=== PATIENT | female | born 1960 | race Caucasian/White ===

== ENCOUNTER → 2021-01-03 15:05 | Outpatient (CLI) | payer BC, SELFPAY ==
--- NOTE | ~2021-01-03 | MM_ITS ---
EXAMINATION: MM screening sanju[facility] BI w yuli HISTORY: Screening mammogram, family history of breast cancer in her mother. TECHNIQUE: Craniocaudal and mediolateral oblique 3-D tomosynthesis images were obtained and synthetic 2-D images were generated. CAD analysis was submitted and interpreted. COMPARISON: 07/21/2017, 06/16/2016, 05/07/2015 BREAST PARENCHYMAL COMPOSITION: The breasts are heterogeneously dense, which may obscure small masses . FINDINGS: There is no evidence of suspicious mass, calcification, or architectural distortion to sugg est malignancy in either breast. There has been no suspicious interval change. IMPRESSION: 1. No mammographic evidence of malignancy. 2. Recommend routine screening mammography in one year. BI-RADS Category 1: Negative Reviewed, dictated and finalized at location A.
== END ==
PROVIDERS: Visit Provider Nurse Practitioner Obstetrics & Gynecology
DX: Z12.31 Encounter for screening mammogram for malignant neoplasm of breast (principal)
CPT/HCPCS: 77063; 77067

== ENCOUNTER → 2022-08-13 10:43 | Outpatient (CLI) | payer OTHER, SELFPAY ==
--- NOTE | ~2022-08-13 | MM_ITS ---
EXAMINATION: MM screening [facility] BI w yuli HISTORY: Screening mammogram, family history of breast cancer in her mother. TECHNIQUE: Craniocaudal and mediolateral oblique 3-D tomosynthesis images were obtained and synthetic 2-D images were generated. CAD analysis was submitted and interpreted. COMPARISON: 01/03/2021, 07/21/2017, 06/16/2016 BREAST PARENCHYMAL COMPOSITION: The breasts are heterogeneously dense, which may obscure small masses . FINDINGS: No suspicious mass, calcification, or architectural distortion are identified in either beata ast to suggest malignancy. There has been no suspicious interval change. IMPRESSION: 1. No mammographic evidence of malignancy. 2. Recommend routine screening mammography in one year. BI-RADS Category 1: Negative Reviewed, dictated and finalized at location A. GE APPRAISER
== END ==
PROVIDERS: PCP Family Medicine; Visit Provider Family Medicine
DX: Z12.31 Encounter for screening mammogram for malignant neoplasm of breast (principal)
CPT/HCPCS: 77063; 77067

== ENCOUNTER → 2023-09-10 14:15 | Outpatient (CLI) | payer MEDICARE, SELFPAY ==
--- NOTE | ~2023-09-10 | MM_ITS ---
EXAMINATION: MM screening [facility] BI w yuli HISTORY: Screening mammogram TECHNIQUE: Craniocaudal and mediolateral oblique 3-D tomosynthesis images were obtained and synthetic 2-D images were generated. Bilateral rotated lateral CC views. CAD analysis was submitted and interp reted. COMPARISON: 08/13/2022, 01/03/2021, 07/21/2017 bilateral screening mammogram examinations BREAST PARENCHYMAL COMPOSITION: The breasts are heterogeneously dense, which may obscure small masses . FINDINGS: 2 biopsy markers are noted on the left. History of prior benign left breast biopsies. There is no evidence of suspicious mass, calcification, or architectural distortion to suggest malignancy in either breast. There has been no suspicious interval change. IMPRESSION: 1. No mammographic evidence of malignancy. 2. Recommend routine screening mammography in one year. BI-RADS Category 1: Negative Reviewed, dictated and finalized at location A. EF MANAGER
== END ==
PROVIDERS: PCP Nurse Practitioner Obstetrics & Gynecology; Visit Provider Nurse Practitioner Obstetrics & Gynecology
DX: Z12.31 Encounter for screening mammogram for malignant neoplasm of breast (principal)
CPT/HCPCS: 77063; 77067

== ENCOUNTER 2023-12-16 11:13 | Outpatient (CLI) | payer MEDICARE, SELFPAY ==
--- NOTE | ~2023-12-16 | XR_ITS ---
AP and lateral views of the right hip Clinical history: Pain Findings: No acute fracture or dislocation is seen. Osseous alignment is anatomic. Right hip joint is preserved. Soft tissues are unremarkable. Impression: No significant abnormality is seen. Reviewed, dictated and finalized at location M. Impression: No significant abnormality is seen.
== END 2023-12-16 11:14 ==
LOC: MICIMG 11:16
PROVIDERS: PCP Emergency Medicine; Visit Provider Emergency Medicine
DX: M25.551 Pain in right hip (principal)
CPT/HCPCS: 73502

== ENCOUNTER 2024-08-03 11:58 | Outpatient (CLI) | payer MEDICARE, SELFPAY ==
--- NOTE | ~2024-08-03 | XR_ITS ---
3 VIEWS LUMBAR SPINE Ordering provider: Magui Williamson History: . LOW BACK PAIN . Comparison: None. FINDINGS: VERTEBRAL BODIES: No visible fracture or subluxation. Degenerative changes of the spine. DISK SPACES: Normal. Facet joint disease at the level of L4-L5 and L5-S1. SOFT TISSUES: Normal. Bilateral sacroiliitis. Fecal material seen in both sides of the colon. IMPRESSION: No acute osseous abnormality lumbar spine. Reviewed, dictated and finalized at location A. DOUGH ROLLER
== END 2024-08-03 11:59 | disposition home or self-care (01) ==
DX: M54.50 Low back pain, unspecified (principal)
CPT/HCPCS: 72100

== ENCOUNTER 2024-08-29 15:00 | Outpatient (RCR) | payer MEDICARE, SELFPAY ==
--- NOTE | 2024-08-26 19:02 | PTOPEVAL1 ---
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 Has had hip pain in the past, MD prescribed oral steroids which took care of the pain. Chronic neck pain which she went to Chiropractor for which she finds relief. Recently, the flare up of pain is bothering her, states has difficulty lifting and carrying weighted objects across the room, so she tries to avoid doing those activities; prolonged sitting position and long distance ambulation increase the pain. States she wants to participate in a [id number] boxing program for Parkinson's Disease, she wants to develop the mobility and strength to be able to perform the exercises safely. Reported Pain Level Pain Score 4: Self Report Additional Pain Score Comments Took Meloxicam for a couple times but recently did not need to. Assessment PT Clinical Summary Pt is a 64 yo female who presents to therapy with increased back pain and difficulty with performing functional mobility. Has been diagnosed of Parkinson's Disease demos mild symptoms, shows reduced ROM to thoracolumbar area and BLE, weakness, balance and gait impairments. Pt will greatly benefit from skilled PT for education, to improve core strength, back stability, BLE flexibility and strength, improve balance and ambulation safety to reduce risk of falls and perform recreational activities without pain and discomfort. Plan of Care Interventions Electrical Stimulation,Gait Training,Hot Pack/Cold Pack,Manual Therapy,Mechanical Traction,Neuro Re- education,Patient/Caregiver Education,Therapeutic Activities,Therapeutic Exercise,Ultrasound,Other Other Interventions IASTM, Taping PT Services Indicated Yes Treatment Frequency and 2x/wk x 16 visits Duration These treatments will address the objective and functional deficits as defined above. The patient will be advanced safely and appropriately in order for the patient to progress towards his/her prior level of function. Additional exercises will be introduced and as well as a comprehensive home exercise program upon discharge, if needed, ?to ensure carryover of functional gains achieved in the clinic. This treatment plan has been reviewed and agreement upon by the patient.
--- NOTE | 2024-08-26 19:02 | OPREHPOC ---
Outpatient Therapy Plan of Care This is a Multidisciplinary Plan of Care that may contain components documented by all disciplines (PT, OT, and ST.) PT Problem 1 PT Problem #1 Knowledge Deficit PT Goal 1 Goal / Goal Update Pt will perform core strengthening, lumbar stabilization, BLE flexibility and strengthening exercises indep. Target Visit 14 PT Problem 2 PT Problem #2 Pain PT Goal 1 Goal / Goal Update 1. Pt will report 2-3/10 pain at worst. 2. Pt will report 0/10 pain at worst or when performing provoking movements. Target Visit 16 PT Problem 3 PT Problem #3 Impaired Strength PT Goal 1 Goal / Goal Update Pt will perform abdominal and BLE strength of 4/5 to all tested planes. Target Visit 20 PT Problem 4 PT Problem #4 Impaired Balance PT Goal 1 Goal / Goal Update 1. Pt will demo a Tinetti Score of 24/28 or more in order to reduce risk for falls. 2. Pt will demo SLS for 10-15 seconds or more to improve safety with community ambulation without AD. 3. Pt will demo good dynamic standing balance without BUE support and reaching for objects from various planes and off the floor. Target Visit 20
--- NOTE | 2024-09-12 15:55 | PTOPDC ---
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 Has had hip pain in the past, MD prescribed oral steroids which took care of the pain. Chronic neck pain which she went to Chiropractor for which she finds relief. Recently, the flare up of pain is bothering her, states has difficulty lifting and carrying weighted objects across the room, so she tries to avoid doing those activities; prolonged sitting position and long distance ambulation increase the pain. States she wants to participate in a [employer] boxing program for Parkinson's Disease, she wants to develop the mobility and strength to be able to perform the exercises safely. Assessment PT Clinical Summary Pt only received 3 treatment sessions when she called the office requesting to be DC'd due to she can do her own exercises at home and she is participating in boxing workout for Parkinson's Disease which she feels may be too much to be participating in both programs at this point for her. Plan of Care PT Services Indicated No
== END 2024-09-13 08:49 | disposition home or self-care (01) ==
LOC: ANHHIPT 15:00
DX: M54.50 Low back pain, unspecified (principal)
CPT/HCPCS: 97014; 97110; 97140; 97161; 97530; G0283